=== PATIENT | male | born 1990 | race Caucasian/White ===

== ENCOUNTER 2016-06-06 12:50 | Emergency (ER) | payer OTHER | END 2016-06-06 15:24 | disposition home or self-care (01) | LOC: ER 12:50 | DX: T50.7X5A Adverse effect of analeptics and opioid receptor antagonists, initial encounter (principal); G43.909 Migraine, unspecified, not intractable, without status migrainosus; F17.220 Nicotine dependence, chewing tobacco, uncomplicated | CPT/HCPCS: 96374; 96375; J1200 ==

== ENCOUNTER 2016-06-16 19:17 | Emergency (ER) | payer OTHER | END 2016-06-16 20:00 | disposition home or self-care (01) | LOC: ER 19:17 | DX: L02.214 Cutaneous abscess of groin (principal); G43.909 Migraine, unspecified, not intractable, without status migrainosus; F17.210 Nicotine dependence, cigarettes, uncomplicated ==

== ENCOUNTER 2016-08-11 15:14 | Emergency (ER) | payer OTHER | END 2016-08-11 15:50 | disposition home or self-care (01) | LOC: ER 15:14 | DX: M79.644 Pain in right finger(s) (principal); L53.9 Erythematous condition, unspecified; G43.909 Migraine, unspecified, not intractable, without status migrainosus; F17.220 Nicotine dependence, chewing tobacco, uncomplicated ==